=== PATIENT | female | born 1955 | race Caucasian/White ===

== ENCOUNTER 2022-01-27 18:19 | Emergency (ER) | payer MEDICARE ==
[~2022-01-27 18:19] MED LIST: ALLERGY RELIEF10 M3 PO; AMLODIPINE BESYL5 MG PO; CALCIUM 500 +1 EACH PO; COLACE 100MG C100 MG PO; FERRO-TIME325 MG PO; FISH OIL 1,0001 EAC3 PO; FLOVENT 440.088 GM/I INH; HYDROCHLOROTHIA25 MG PO; LASIX20 MG PO; LIPITOR TAB 2020 MG PO; LORTAB 5-325 M1 EACH PO; MIRALAX17 GM PO; MULTIVITAMINS1 EAC1 PO; NEURONTIN600 MG PO; PERCOCET 5/325 T1 EA PO; PREDNISONE 20 M20 MG PO; PREVACID30 MG PO; SYNTHROID100 MCG PO; XARELTO 10 MG T10 MG PO
== END 2022-01-27 21:11 | disposition home or self-care (01) ==
LOC: ER1 18:19
DX: I80.02 Phlebitis and thrombophlebitis of superficial vessels of left lower extremity (principal); E11.9 Type 2 diabetes mellitus without complications; I10 Essential (primary) hypertension
CPT/HCPCS: 99283